=== PATIENT | male | born 1970 | race Caucasian/White ===

== ENCOUNTER 2025-06-23 12:38 | Observation (INO) | payer SELFPAY ==
[2025-06-23] VITALS (11 sets, daily range): BP systolic 188–210; BP diastolic 95–114; PULSE 76–97; RESP 17–20; TEMP 36.4–37; O2SAT 94–100; BMI 28.3
--- NOTE | 2025-06-23 | ECHO_ITS ---
Patient Info Name: Mckinley Guerrero Age: 55 years : 1970 Gender: Male Ht: 71 in Wt: 200 lbs BSA: 2.15 m2 HR: 77 bpm BP: 200 / 109 mmHg Heart Rhythm: Sinus Rhythm Technical Quality: Good Exam Date: 06/23/2025 4:44 PM Patient Status: I Admit Date: 06/23/2025 Exam Type: CA echo doppler w bubble study Complete two-dimensional, color flow and Doppler transthoracic echocardiogram is performed with agitated saline. Staff Referring Physician: New Subramanian Table Saw Operator: Keisha Browning Attending Provider: New Subramanian Contrast/Agitated Saline Contrast/Ag. Saline: Agitated Saline Amount: 20.00 ml Existing IV Access: Yes IV Access Condition: patent with no signs of infiltration Summary 1. Left ventricular chamber dimension is normal. 2. Left ventricular systolic function is normal, estimated at 60-65. 3. There is mild concentric increased left ventricular wall thickness. 4. The left ventricular diastolic function is grade I diastolic dysfunction. 5. E/e' 13 is mildly elevated. 6. No pulmonary hypertension, estimated pulmonary arterial systolic pressure is 20 mmHg. Left Ventricle Left ventricular chamber dimension is normal. Left ventricular systolic function is normal, estimated at 60-65. There is mild concentric increased left ventricular wall thickness. The left ventricular diastolic function is grade I diastolic dysfunction. E/e' 13 is mildly elevated. Right Ventricle Right ventricular chamber dimension is normal. Right ventricular systolic function is normal and with normal TAPSE 2.0 cm. Left Atria Left atrial chamber dimension is normal. Right Atria Right atrial chamber dimension is normal. Atrial Septum Intact interatrial septum visualized by 2D and agitated saline imaging. Agitated saline injection with and without valsalva maneuver opacified right side cardiac chambers without shunt to left side cardiac chambers. Aortic Valve The aortic valve is trileaflet. There is no aortic valve stenosis. There is no aortic valve regurgitation. Pulmonic Valve There is no pulmonic regurgitation. Mitral Valve There is no mitral valve stenosis. There is no mitral valve regurgitation. Tricuspid Valve There is no tricuspid valve regurgitation. No pulmonary hypertension, estimated pulmonary arterial systolic pressure is 20 mmHg. Pericardium/Pleural There is no pericardial effusion. Inferior Vena Cava Normal inferior vena cava with >50% collapse upon inspiration consistent with normal right atrial pressure, 5 mmHg. Aorta The aortic root size at the sinus of Valsalva is normal. Left Ventricular Outflow Tract Name Value Normal LVOT 2D LVOT Diameter 2.0 cm LVOT Doppler LVOT Peak Velocity 83 cm/s LVOT Peak Gradient 3 mmHg LVOT Mean Gradient 1 mmHg LVOT VTI 14 cm LVOT VTI/AV VTI Ratio 0.7 LVOT Stroke Volume 45 ml LVOT CO 3.5 l/min LVOT CI 1.6 l/min/m2 Pulmonic Valve Name Value Normal RVOT Doppler RVOT Peak Velocity 87 cm/s RVOT Peak Gradient 3 mmHg PV Doppler PV Peak Velocity 109 cm/s PV Peak Gradient 5 mmHg Mitral Valve Name Value Normal MV Diastolic Function MV E Peak Velocity 51 cm/s MV A Peak Velocity 68 cm/s MV E/A 0.7 MV Decel Time (PW) 232 ms MV Annular TDI MV E/e' (Septal) 12.2 MV E/e' (Lateral) 13.9 MV E/e' (Average) 13.1 Tricuspid Valve Name Value Normal TV Regurgitation Doppler TR Peak Velocity 193 cm/s TR Peak Gradient 15 mmHg Estimated PAP/RSVP RA Pressure 5 mmHg <=5 PA Systolic Pressure 20 mmHg <36 RV Systolic Pressure 20 mmHg <36 TV Annular TDI TV Lateral Mary s' Velocity 13.2 cm/s >=9.5 Aortic Valve Name Value Normal AV Doppler AV Peak Velocity 118 cm/s AV Peak Gradient 6 mmHg AV Mean Gradient 3 mmHg AV VTI 20 cm AV Area (Cont Eq VTI) 2.2 cm2 >=3.0 AV Area (Cont Eq Juice) 2.3 cm2 AV DI (Juice) 0.71 AV Regurgitation 2D LVOT Area 3.3 cm2 Ventricles Name Value Normal LV Dimensions 2D/MM IVS Diastolic Thickness (2D) 1.4 cm 0.6-1.0 LVID Diastole (2D) 5.0 cm 4.2-5.8 LVIW Diastolic Thickness (2D) 1.1 cm 0.6-1.0 LVID Systole (2D) 3.4 cm 2.5-4.0 LVOT Diameter 2.0 cm LV Mass (2D Cubed) 245.74 g 88.00-224.00 LV Mass Index (2D Cubed) 114 g/m2 49-115 Relative Wall Thickness (2D) 0.45 <=0.42 LV Fractional Shortening/Ejection Fraction 2D/MM LV Fractional Shortening (2D) 32 % 25-43 LV EF (2D Teichholz) 60 % LV Diastolic Volume (4C MOD) 111 ml LV EF (4C MOD) 55 % LV Diastolic Volume (2C MOD) 130 ml LV EF (2C MOD) 51 % LV Diastolic Volume (BP MOD) 124 ml 62-150 LV Diastolic Volume Index (BP MOD) 58 ml/m2 34-74 LV Systolic Volume (BP MOD) 57 ml 21-61 LV Systolic Volume Index (BP MOD) 26 ml/m2 11-31 LV EF (BP MOD) 54 % 52-72 LV Diastolic Length (4C) 9.3 cm LV Systolic Length (4C) 8.1 cm LV Stroke Volume (4C MOD) 61 ml Atria Name Value Normal LA Dimensions LA Volume (4C A-L) 46 ml LA Volume (BP A-L) 61 ml RA Dimensions RA Area (4C) 16.9 cm2 <=18.0 Report Signatures
--- NOTE | ~2025-06-23 | CT_ITS ---
EXAMINATION: CTA brain carotid DATE: 06/23/2025 14:16 CDT INDICATION: Facial droop. CVA. TECHNIQUE: Computed tomographic angiography (CTA) of the head was performed without and with 100 mL Omnipaque-350 intravenous contrast. CTA of the neck was performed with intravenous contrast. The dose-length product was 1163.86 mGy-cm. Maximum intensity projection and volume rendered 3D-reconstructions were created by the technologist on a separate workstation. COMPARISON: CT dated 06/23/2025. FINDINGS: HEAD CTA: The right vertebral artery is diminutive and ends in the right posterior inferior cerebellar artery. The posterior cerebral arteries are supplied via the basilar artery. No significant stenosis, occlusion or aneurysm. NECK CTA: There is atherosclerosis of the aorta without evidence for dissection. The origins of the carotid arteries are widely patent. The right vertebral artery is diminutive throughout its course. There is atherosclerotic changes involving the proximal aspect of the internal carotid arteries. There is less than 20% stenosis at the origin of the right internal carotid artery. There is 44% stenosis of the proximal left internal carotid artery. No evidence for dissection or occlusion. There is mild atherosclerosis of the cavernous segments of the internal carotid arteries. No cervical lymphadenopathy. Mild mucosal thickening of the maxillary, ethmoid and frontal sinuses. IMPRESSION: 1: No significant abnormality of the intracranial arteries. No evidence for aneurysm, thrombus or occlusion. 2: Mild stenosis of the proximal left internal carotid artery measuring 44%. Reviewed, dictated and finalized at location O. IMPRESSION: 1: No significant abnormality of the intracranial arteries. No evidence for ane urysm, thrombus or occlusion. 2: Mild stenosis of the proximal left internal carotid artery measuring 44%.
--- NOTE | ~2025-06-23 | CT_ITS ---
CT HEAD NON-CONTRAST Clinical History: dizziness Comparison: None Technique: Unenhanced axial images skull base to vertex Coronal, sagittal reformats CT images acquired with automatic exposure control for dose reduction DLP: 605 mGy-cm Findings: Sulci, ventricles: Unremarkable. No intracerebral hemorrhage. No evidence acute territorial infarct. No mass effect, midline shift. Bony calvarium intact. Visualized paranasal sinuses: Frontoethmoid disease. Mastoid air cells: Clear. IMPRESSION: 1. No acute intracranial findings. Reviewed, dictated and finalized at location R.
--- NOTE | ~2025-06-23 | XR_ITS ---
Examination: XR chest 1V Clinical History: dizziness, WEAKNESS Comparison: None Technique: Portable AP Findings: Heart size normal. Lungs clear. No acute bony abnormality. IMPRESSION: 1. No acute cardiopulmonary findings given portable technique. Reviewed, dictated and finalized at location R.
--- NOTE | ~2025-06-23 | MR_ITS ---
EXAMINATION: MR brain/brain stem wo/w con DATE: 06/24/2025 09:51 INDICATION: Stroke TECHNIQUE: Magnetic resonance imaging (MRI) of the brain and brainstem was performed without and with 19 mL Multihance intravenous contrast. Sequences included sagittal and axial T1-weighted SE, axial diffusion-weighted FS SE, axial 3D SWAN, axial T2-weighted FLAIR, and axial T2-weighted FSE. Postcontrast axial and coronal T1-weighted SE was obtained. Apparent diffusion coefficient (ADC) maps were created. COMPARISON: None. FINDINGS: There are no areas of restricted diffusion to suggest acute infarction. No intracranial hemorrhage or abnormal intracranial mass lesion. There are scattered areas of nonspecific increased T2-weighted signal intensity in the cerebral white matter, predominantly involving the deep and periventricular whi te matter. There are no intraparenchymal signal abnormalities seen on the other pulse sequences. The ventricles are symmetric and normal in size. There are no abnormal extra-axial fluid collections. Flow voids are seen in the cerebral arteries on the T2-weighted sequences consistent with their expected patency. Mucosal thickening the bilateral frontal and ethmoid sinuses. Visualized orbits and soft tissues are unremarkable. There are no areas of abnormal enhancement on the post contrast images. IMPRESSION: 1. Normal aging brain. No acute intracranial process or abnormally enhancing brain lesions. Reviewed, dictated and finalized at location A. IMPRESSION: 1. Normal aging brain. No acute intracranial process or abnormally enhancing br ain lesions.
--- NOTE | 2025-06-23 12:47 | ECG_ITS ---
Test Date: 2025-06-23 12:52:12 Measurements Intervals [place] Rate: 88 P: 47 FL: 165 QRS: -6 QRSD: 89 T: 60 QT: 375 QTc: 456 Interpretive Statements SINUS RHYTHM NONSPECIFIC ST ABNORMALITY BORDERLINE ECG No previous ECG available for comparison Electronically Signed On 06-24-2025 15:47:50 CDT by Mario Crews M.D.
[2025-06-23 13:00] LABS: Hematocrit 55.7 % (42.0-52.0); Hemoglobin 18.9 g/dL (14.0-18.0); Immature Granulocyte Percent A 0.2 % (0-0.5); Lymphocytes Absolute Auto 3.12 K/mm3 (0.9-3.2); Mean Corpuscular HGB Conc 33.9 g/dl (32-36); Mean Corpuscular Hemoglobin 32.1 pg (26-34); Mean Corpuscular Volume 94.7 fl (80-100); Nucleated Red Blood Cells Absolute Auto 0.000 K/mm3 (0.0-0.012); Nucleated Red Blood Cells Perc 0.0 % (0.0-0.2); Platelet Count Result 357 k/mm3 (150-375); Red Blood Count 5.88 M/mm3 (4.6-6.20); White Blood Count 9.1 K/mm3 (4.5-10.0)
[2025-06-23 13:16] LABS: Alanine Aminotransferase 23 U/L (6-50); Albumin Level 3.5 g/dL (3.5-5.1); Alkaline Phosphatase 126 U/L (38-126); Anion Gap 6 mmol/L (4-12); Aspartate Amino Transferase 30 U/L (17-59); Bilirubin,Total 1.3 mg/dL (0.2-1.3); Blood Urea Nitrogen 11 mg/dL (9-20); Calcium 8.9 mg/dL (8.4-10.2); Carbon Dioxide 22 mmol/L (22-30); Chloride 105 mmol/L (98-107); Estimated CRCL calculation 99 ml/min; Estimated Glomerular Filt Rate > 60; Glucose 120 mg/dL (65-110); Potassium 4.0 mmol/L (3.4-5.0); Sodium 133 mmol/L (137-145); Total Protein 7.5 g/dL (6.3-8.2)
[2025-06-23 13:22] LABS: Troponin I 0.020 ng/mL (0.000-0.034)
--- NOTE | 2025-06-23 13:43 | ED_ITS ---
HPI - Dizziness General Chief Complaint: Dizziness Stated Complaint: Im feeling funny' Time Seen by Provider: 06/23/25 13:36 History of Present Illness HPI Narrative: This is a 55-year-old male with no significant past medical history presents to ED for ?feeling unwell?. Patient states that yesterday at about 10:00 a.m., he began to feel off balance. Family at bedside states that they noticed that the patient was having some mild left facial droop which was new for him. His symptoms persisted today prompting him to come to the ED. is also full week to his left side. No prior history of strokes. He is not on any medications currently. Related Data Allergies Allergy/AdvReac Type Severity Reaction Status Date / Time No Known Allergies Allergy Verified 06/23/25 14:12 Course Vital Signs Vital signs: Vital Signs Temperature 98 F 06/23/25 12:43 Pulse Rate 97 06/23/25 12:43 Respiratory Rate 18 06/23/25 12:43 Blood Pressure 201/104 H 06/23/25 12:43 Pulse Oximetry 100 06/23/25 12:43 Oxygen Delivery Room Air 06/23/25 12:43 Temperature 97.7 F 06/23/25 15:02 Pulse Rate 77 06/23/25 15:02 Respiratory Rate 17 06/23/25 15:02 Blood Pressure 200/109 H 06/23/25 15:02 Pulse Oximetry 95 06/23/25 15:02 Oxygen Delivery Room Air 06/23/25 12:43 MDM - Dizziness MDM Narrative Medical decision making narrative: 55-year-old male who presented to the ED for left-sided weakness and left-sided facial droop. Initial evaluation, patient was in no acute distress, afebrile, hypertensive to 200/100. NIHSS for due to left facial droop and left upper and lower extremity drift. Patient is approximately 28 hours after onset of symptoms was outside of the window for any intervention at this time. CT head showed no acute process. CBC and CMP were without significant abnormalities. EKG showed no concerning findings. CTA head/neck showed mild stenosis of the proximal left carotid artery but no other findings. Discussed the case with on- call Neurology will see the patient in the consult, recommended aspirin and Plavix. Discussed case with hospitalist who will admit the patient. Patient agreeable to this plan. Differential Diagnosis Differential diagnosis: Likely vertebral basilar insufficiency, cerebrovascular accident and transient cerebral ischemia Medical Records Attestation: I reviewed the patient's medical records. Lab Data Attestation: I reviewed the patient's lab results. 06/23/25 12:52 06/23/25 12:52 Labs: Lab Results 06/23/25 06/23/25 Range/Units 12:52 13:29 WBC 9.1 (4.5-10.0) K/mm3 RBC 5.88 (4.6-6.20) M/mm3 Hgb 18.9 H (14.0-18.0) g/dL Hct 55.7 H (42.0-52.0) % MCV 94.7 (80-100) fl MCH 32.1 (26-34) pg MCHC 33.9 (32-36) g/dl RDW 14.3 (11.5-14.5) % Plt Count 357 (150-375) k/mm3 MPV 8.4 (7.4-10.4) fl Immature Gran % (Auto) 0.2 (0-0.5) % Neut % (Auto) 51.9 (45.5-73.1) % Lymph % (Auto) 34.3 (18.3-44.2) % [place] % (Auto) 8.5 (2.6-8.5) % Eos % (Auto) 3.9 (0-4.4) % Baso % (Auto) 1.2 (0.2-1.2) % Lymph # (Auto) 3.12 (0.9-3.2) K/mm3 [place] # (Auto) 0.8 H (0.1-0.6) K/mm3 Eos # (Auto) 0.4 H (0-0.3) K/mm3 Baso # (Auto) 0.1 (0.0-0.1) K/mm3 Abs Immat Gran (auto) 0.02 (0.00-0.031) K/mm3 Absolute Neuts (auto) 4.7 (1.3-6.7) K/mm3 Absolute Nucleated RBC 0.000 (0.0-0.012) K/mm3 Nucleated RBC % 0.0 (0.0-0.2) % PT 12.0 (11.1-14.7) Seconds INR 0.9 APTT 26.1 (22.3-36.8) Seconds Sodium 133 L (137-145) mmol/L Potassium 4.0 (3.4-5.0) mmol/L Chloride 105 (98-107) mmol/L Carbon Dioxide 22 (22-30) mmol/L Anion Gap 6 (4-12) mmol/L BUN 11 (9-20) mg/dL Creatinine 0.77 (0.7-1.3) mg/dL Estim Creat Clear Calc 99 ml/min Estimated GFR > 60 (59 - ) Glucose 120 H (65-110) mg/dL POC Capillary Glucose 129 H (65-105) mg/dl Calcium 8.9 (8.4-10.2) mg/dL Total Bilirubin 1.3 (0.2-1.3) mg/dL AST 30 (17-59) U/L ALT 23 (6-50) U/L Alkaline Phosphatase 126 (38-126) U/L Troponin I 0.020 (0.000-0.034) ng/mL Total Protein 7.5 (6.3-8.2) g/dL Albumin 3.5 (3.5-5.1) g/dL Imaging Data Radiologist's impression: Impressions Chest X-Ray 06/23/25 13:08 IMPRESSION: 1. No acute cardiopulmonary findings given portable technique. Head CT 06/23/25 13:08 IMPRESSION: 1. No acute intracranial findings. Head/Neck CTA 06/23/25 14:16 IMPRESSION: 1: No significant abnormality of the intracranial arteries. No evidence for aneurysm, thrombus or occlusion. 2: Mild stenosis of the proximal left internal carotid artery measuring 44%. ECG Data EKG #1: ECG completion date: 06/23/25 ECG completion time: 12:52 Interpretation: Normal sinus rhythm rate of 88, left atrial enlargement, right ventricular conduction delay, no acute ST or T-wave changes Discharge Plan Discharge Clinical Impression: Acute CVA (cerebrovascular accident) Hypertension Qualifiers: Hypertension type: unspecified Qualified Code(s): I10 - Essential (primary) hypertension Patient Disposition: Still a Patient Condition: Stable Patient Language: Palestinian Follow-up/Referrals: Mir Whitmore MD [Physician, Urology]
[2025-06-23 13:52] LABS: INR 0.9; Prothrombin Time 12.0 Seconds (11.1-14.7)
[2025-06-23 13:53] LABS: Partial Thromboplastin Time 26.1 Seconds (22.3-36.8)
[2025-06-23] MEDS: ASPIRIN 81 MG CHEWABLE TABLET 324 MG PO (14:13)
[2025-06-23] MEDS: CLOPIDOGREL BISULFATE 300 MG TABLET PO (14:17)
--- NOTE | 2025-06-23 15:46 | P.HP_ITS ---
H&P: HPI History of Present Illness Date/Time: 06/23/25 15:46 Chief Complaint: Off balance Narrative: This is a 55-year-old male who presents to the ED for feeling unwell and being off balance with left-sided paresthesia and weakness since yesterday at 10:00 a.m.. Family noticed that patient was having some mild left-sided facial droop which was new for him. Symptoms persisted today which prompted him to be brought to the ED. no history of prior stroke. Patient not on any medications prior to admission. Has not seen physician for many years patient is also current smoker and uses alcohol. In the ED his vitals shows hypertension with blood pressure 201/104. Laboratory workup revealed WBC of 9.1 hemoglobin 18.9 platelet count 3.7. Chem panel shows sodium of 133 potassium 4.0 chloride 105 bicarbonate 22 BUN 11 creatinine 0.7 blood glucose of 120. LFTs were normal. Troponin was 0.020. EKG showed sinus rhythm. CT head was performed which showed no acute intracranial findings CTA head and neck was performed which showed no significant abnormality of the intracranial arteries no evidence for aneurysm thrombus or occlusion. Mild stenosis of the proximal left internal carotid artery measuring 44%. Patient received aspirin 325 mg no also was loaded with Plavix 300 mg. Patient admitted for stroke workup Review of Systems Review of Systems: - CONSTITUTIONAL: Denies weight loss, fe niels and chills. Feels unwell generally - HEENT: Denies changes in vision and he aring - RESPIRATORY: Denies SOB and cough. - CV: Denies palpitations and CP. - GI: Denies abdominal pain, nausea, vom iting and diarrhea. - : Denies dysuria and urinary frequen cy. - MSK: Denies myalgia and joint pain. - SKIN: Denies rash and pruritus. - NEUROLOGICAL: Denies headache and sync ope. Left-sided weakness as well as paresthesia reported - PSYCHIATRIC: Denies recent changes in mood. Denies anxiety and depression. Meds Home Medications and Allergies Allergies Allergy/AdvReac Type Severity Reaction Status Date / Time No Known Allergies Allergy Verified 06/23/25 14:12 Vital Signs Vital Signs - 24 hr 06/23/25 12:43 06/23/25 13:48 06/23/25 14:17 Temperature 98 F 97.9 F Pulse Rate 97 81 89 Respiratory Rate 18 17 17 Blood Pressure 201/104 H 195/95 H 191/101 H Pulse Oximetry 100 94 95 Oxygen Delivery Room Air 06/23/25 14:32 06/23/25 15:02 Temperature 97.9 F 97.7 F Pulse Rate 79 77 Respiratory Rate 20 17 Blood Pressure 201/103 H 200/109 H Pulse Oximetry 96 95 Oxygen Delivery Exam Narrative: GENERAL: The patient is well developed, not in acute distress HEENT: Nonicteric sclerae, PERRLA, EOMI. Oropharynx clear. Moist mucous membranes. Conjunctivae appear well perfused. CHEST: Chest wall is nontender. HEART: Regular rate and rhythm without murmur, rubs, or gallops LUNGS: Clear to auscultation bilaterally. no respiratory distress ABDOMEN: Soft, positive bowel sounds, non-tender, no organomegaly. SKIN: No rash, no excessive bruising, petechiae, or purpura. NEUROLOGIC: Cranial nerves II-XII intact, alert and oriented x 3, mild left- sided weakness decreased sensation on left side left-sided facial drooping, Babinski positive on left foot EXTREMITIES: no edema, cyanosis or clubbing H&P: Results Labs Labs: Short CBC 06/23/25 Range/Units 12:52 WBC 9.1 (4.5-10.0) K/mm3 Hgb 18.9 H (14.0-18.0) g/dL Hct 55.7 H (42.0-52.0) % Plt Count 357 (150-375) k/mm3 BMP 06/23/25 12:52 Sodium 133 L Potassium 4.0 Chloride 105 Carbon Dioxide 22 BUN 11 Creatinine 0.77 Glucose 120 H Calcium 8.9 Cardiac Enzymes 06/23/25 Range/Units 12:52 Troponin I 0.020 (0.000-0.034) ng/mL Liver Function 06/23/25 Range/Units 12:52 Total Bilirubin 1.3 (0.2-1.3) mg/dL AST 30 (17-59) U/L ALT 23 (6-50) U/L Alkaline Phosphatase 126 (38-126) U/L Albumin 3.5 (3.5-5.1) g/dL Assessment and Plan Assessment and plan (1) Hypertension: Qualifiers: Hypertension type: unspecified Qualified Code(s): I10 - Essential (primary) hypertension Code(s): I10 - Essential (primary) hypertension Status: Acute (2) Acute CVA (cerebrovascular accident): Code(s): I63.9 - Cerebral infarction, unspecified Status: Acute Plan This is a 55-year-old male who presents to the ED for feeling unwell and being off balance since yesterday at 10:00 a.m.. Family noticed that patient was having some mild left-sided facial droop which was new for him. Symptoms persisted today which prompted him to be brought to the ED. no history of prior stroke. Patient not on any medications prior to admission. In the ED his vitals shows hypertension with blood pressure 201/104. Laboratory workup revealed WBC of 9.1 hemoglobin 18.9 platelet count 3.7. Chem panel shows sodium of 133 potassium 4.0 chloride 105 bicarbonate 22 BUN 11 creatinine 0.7 blood glucose of 120. LFTs were normal. Troponin was 0.020. EKG showed sinus rhythm. CT head was performed which showed no acute intracranial findings CTA head and neck was performed which showed no significant abnormality of the intracranial arteries no evidence for aneurysm thrombus or occlusion. Mild stenosis of the proximal left internal carotid artery measuring 44%. Patient received aspirin 325 mg no also was loaded with Plavix 300 mg. Patient admitted for stroke workup Suspected acute stroke out of the window as symptoms started since yesterday morning at 10. CT head however is negative. Received aspirin and Plavix. CTA negative for significant carotid stenosis. Will further evaluate with MRI brain and echocardiogram EKG with normal sinus rhythm continue to monitor on telemetry. Continue aspirin Plavix and add statin. Neurology has been consulted. Check lipid profile and A1c Hypertension allow permissive hypertension for now will need chronic hypertension control eventually Tobacco abuse will give nicotine patch counseling done Alcohol use counseling done Skin rash in lower extremities psoriasis versus eczema follow-up with Dermatology as outpatient basis DVT prophylaxis Lovenox Code status full code Hospitalist [facility] Advance Care Plan I have confirmed that the patient's Advanced Care Plan is present, code status is documented, or surrogate decision maker is listed in patient medical record.: Yes Medication Reconciliation I have utilized all available resources to obtain, update and review the patients current medications (includes all prescriptions, OTC, herbals, cannabis, and nutritional supplements).: Yes
[2025-06-23 16:51] LABS: Cholesterol 323 mg/dL (0-200); HDL Direct 35 mg/dL; Triglycerides 212 mg/dL (<150)
--- NOTE | 2025-06-23 17:29 | ADMGEN ---
This patient, Mckinley Guerrero, was admitted to Medical Room 345-. Patient/family oriented to hospital policies and general routines including ID bracelet, bed and alarms, visiting hours, pain management, procedures, bathroom and other care routines, personal items, smoking policy, room service/diet, and visiting hours. Information on how to activate the Rapid Response Team has been discussed. Patient/Family are encouraged to report perceived risks to care and to ask questions if they do not understand what they are told or what they should do.
[2025-06-23 17:39] LABS: Hemoglobin A1C 5.7 % (<5.7)
[2025-06-23] MEDS: NICOTINE (*PBKC) 21 MG PATCH 1 PATCH TRANSDERM (18:30)
[2025-06-23] MEDS: ATORVASTATIN 40 MG TABLET 80 MG PO (20:44)
[2025-06-24] VITALS (11 sets, daily range): BP systolic 180–192; BP diastolic 83–109; PULSE 50–87; RESP 16–20; TEMP 36.5–37.3; O2SAT 94–98
[2025-06-24 05:49] LABS: Hematocrit 54.0 % (42.0-52.0); Hemoglobin 17.7 g/dL (14.0-18.0); Immature Granulocyte Percent A 0.4 % (0-0.5); Lymphocytes Absolute Auto 3.62 K/mm3 (0.9-3.2); Mean Corpuscular HGB Conc 32.8 g/dl (32-36); Mean Corpuscular Hemoglobin 31.7 pg (26-34); Mean Corpuscular Volume 96.6 fl (80-100); Nucleated Red Blood Cells Absolute Auto 0.000 K/mm3 (0.0-0.012); Nucleated Red Blood Cells Perc 0.0 % (0.0-0.2); Platelet Count Result 333 k/mm3 (150-375); Red Blood Count 5.59 M/mm3 (4.6-6.20); White Blood Count 9.9 K/mm3 (4.5-10.0)
[2025-06-24 06:16] LABS: Alanine Aminotransferase 20 U/L (6-50); Albumin Level 3.0 g/dL (3.5-5.1); Alkaline Phosphatase 106 U/L (38-126); Anion Gap 5 mmol/L (4-12); Aspartate Amino Transferase 26 U/L (17-59); Bilirubin,Total 1.4 mg/dL (0.2-1.3); Blood Urea Nitrogen 10 mg/dL (9-20); Calcium 8.7 mg/dL (8.4-10.2); Carbon Dioxide 23 mmol/L (22-30); Chloride 104 mmol/L (98-107); Estimated CRCL calculation 104 ml/min; Estimated Glomerular Filt Rate > 60; Glucose 94 mg/dL (65-110); Magnesium 2.0 mg/dL (1.6-2.3); Potassium 3.5 mmol/L (3.4-5.0); Sodium 132 mmol/L (137-145); Total Protein 6.4 g/dL (6.3-8.2)
[2025-06-24] MEDS: ASPIRIN 81 MG ENTERIC TABLET PO (09:13)
[2025-06-24] MEDS: CLOPIDOGREL BISULFATE 75 MG TABLET PO (09:13)
[2025-06-24] MEDS: NICOTINE (*PBKC) 21 MG PATCH 1 PATCH TRANSDERM (09:13)
[2025-06-24] MEDS: ENOXAPARIN 40 MG/0.4 ML SYRINGE SUB-Q (09:14)
--- NOTE | 2025-06-24 11:43 | P.CONNEU_ITS ---
Assessment and Plan Assessment and plan (1) Acute CVA (cerebrovascular accident): Code(s): I63.9 - Cerebral infarction, unspecified Status: Acute Plan Right hemispheric stroke with negative MRI could be involving the brainstem will need the repeat the study in the meantime medication can be continued as such and obtain the echocardiogram as well. Consult date: 06/24/25 HPI: Mckinley Guerrero is a 55 year old male Admitted to the hospital for the complaints of I am feeling funny since 10:00 a.m. day before along with the difficulties in maintaining the balance and left facial droop. He is not allergic to any medication. On initial evaluation in the emergency room he was hypertensive with blood pressure of 201/104 repeat 200/109, normal CBC, normal BMP, normal masters scan, negative x-ray of the chest, negative CT scan of the head, negative CTA of the head and neck except mild stenosis of the proximal left internal carotid artery measuring 44%, normal EKG with no atrial fibrillation, he was not taking any home medications, but at present he is taking aspirin 81mg daily, and clopidogrel 75mg daily, in addition to atorvastatin 80mg at night. Review of Systems 2 Review of Systems: All systems reviewed & are unremarkable except as noted in HPI and below PMFSH Social History Social History Smoking packs per day: 1 Smoking cigarettes per day: 20.0 Years smoked: 40 Smoking pack-years: 40.00 Smoking status: Current every day smoker Tobacco type: cigarettes Alcohol intake: never Substance use: never Lack of Transportation: No Lack of Food: Never True Current Housing: I Do Not Have Housing Concerned About Future Housing: No Difficulty Paying Gas/Electric Bills: No Difficulty Paying for Meds: No Currently Unemployed: No Education: High School Diploma/GED Difficulty w/ Childcare or Family Care: No Spiritual care concerns: No Meds Home Medications and Allergies Home Medications ?Medication ?Instructions ?Recorded ?Confirmed ?Type No Home Medications 06/23/25 06/23/25 H istory Allergies Allergy/AdvReac Type Severity Reaction Status Date / Time No Known Allergies Allergy Verified 06/23/25 14:12 Vital Signs Vital Signs - 24 hr 06/23/25 12:43 06/23/25 13:48 06/23/25 14:17 Temperature 36.6 C 36.6 C Pulse Rate 97 81 89 Respiratory Rate 18 17 17 Blood Pressure 201/104 H 195/95 H 191/101 H Pulse Oximetry 100 94 95 Oxygen Delivery Room Air 06/23/25 14:32 06/23/25 15:02 06/23/25 16:19 Temperature 36.6 C 36.5 C 36.6 C Pulse Rate 79 77 83 Respiratory Rate 20 17 20 Blood Pressure 201/103 H 200/109 H 210/110 H Pulse Oximetry 96 95 95 Oxygen Delivery 06/23/25 16:32 06/23/25 17:30 06/23/25 17:55 Temperature 36.4 C L Pulse Rate 79 77 Respiratory Rate 17 20 Blood Pressure 200/111 H 188/101 H Pulse Oximetry 97 97 Oxygen Delivery Room Air 06/23/25 19:52 06/23/25 20:00 06/23/25 20:45 Temperature 37.0 C Pulse Rate 77 76 76 Respiratory Rate 20 18 Blood Pressure 207/114 H Pulse Oximetry 97 99 Oxygen Delivery Room Air 06/24/25 00:00 06/24/25 04:00 06/24/25 05:04 Temperature 36.5 C Pulse Rate 63 50 L 78 Respiratory Rate 18 Blood Pressure 192/100 H Pulse Oximetry 97 Oxygen Delivery 06/24/25 09:15 Temperature Pulse Rate Respiratory Rate Blood Pressure Pulse Oximetry Oxygen Delivery Room Air Exam 2 Narrative: Examination today revealed him to be awake alert oriented x3 with slow speech but without any evidence of dysphagia, head normocephalic with no cranial bruits, ear nose throat examination normal, neck supple with no cervical bruit no thyromegaly no lymphadenopathy, lungs clear to auscultation with no rhonchi or crepitations, pupils round regular reacting to light equally, feels the vision full to finger confrontation in all 4 quadrants, extraocular movements full with no nystagmus, facial sensation intact, face mildly asymmetrical with flattening of the left nasolabial fold, tongue in the oral cavity with no fasciculation, motor examination revealed him to have mild left hemiparesis with hyperreflexia and upgoing left plantar response. Results Labs 06/24/25 05:30 06/24/25 05:30 Labs: Short CBC 06/23/25 06/24/25 Range/Units 12:52 05:30 WBC 9.1 9.9 (4.5-10.0) K/mm3 Hgb 18.9 H 17.7 (14.0-18.0) g/dL Hct 55.7 H 54.0 H (42.0-52.0) % Plt Count 357 333 (150-375) k/mm3 BMP 06/23/25 06/24/25 12:52 05:30 Sodium 133 L 132 L Potassium 4.0 3.5 Chloride 105 104 Carbon Dioxide 22 23 BUN 11 10 Creatinine 0.77 0.73 Glucose 120 H 94 Calcium 8.9 8.7 Cardiac Enzymes 06/23/25 Range/Units 12:52 Troponin I 0.020 (0.000-0.034) ng/mL Liver Function 06/23/25 06/24/25 Range/Units 12:52 05:30 Total Bilirubin 1.3 1.4 H (0.2-1.3) mg/dL AST 30 26 (17-59) U/L ALT 23 20 (6-50) U/L Alkaline Phosphatase 126 106 (38-126) U/L Albumin 3.5 3.0 L (3.5-5.1) g/dL
--- NOTE | 2025-06-24 18:02 | P.PNIM_ITS ---
Progress Note: A&P Assessment and Plan (1) Hypertension: Qualifiers: Hypertension type: unspecified Qualified Code(s): I10 - Essential (primary) hypertension Code(s): I10 - Essential (primary) hypertension Status: Acute (2) Acute CVA (cerebrovascular accident): Code(s): I63.9 - Cerebral infarction, unspecified Status: Acute Plan This is a 55-year-old male who presents to the ED for feeling unwell and being off balance since yesterday at 10:00 a.m.. Family noticed that patient was having some mild left-sided facial droop which was new for him. Symptoms persisted today which prompted him to be brought to the ED. no history of prior stroke. Patient not on any medications prior to admission. In the ED his vitals shows hypertension with blood pressure 201/104. Laboratory workup revealed WBC of 9.1 hemoglobin 18.9 platelet count 3.7. Chem panel shows sodium of 133 potassium 4.0 chloride 105 bicarbonate 22 BUN 11 creatinine 0.7 blood glucose of 120. LFTs were normal. Troponin was 0.020. EKG showed sinus rhythm. CT head was performed which showed no acute intracranial findings CTA head and neck was performed which showed no significant abnormality of the intracranial arteries no evidence for aneurysm thrombus or occlusion. Mild stenosis of the proximal left internal carotid artery measuring 44%. Patient received aspirin 325 mg no also was loaded with Plavix 300 mg. Patient admitted for stroke workup Suspected acute stroke out of the window as symptoms started since yesterday morning at 10. CT head however is negative. Received aspirin and Plavix. CTA negative for significant carotid stenosis. Will further evaluate with MRI brain and echocardiogram EKG with normal sinus rhythm continue to monitor on telemetry. Continue aspirin Plavix and add statin. Neurology has been consulted. Check lipid profile and A1c Hypertension allow permissive hypertension for now will need chronic hypertension control eventually Tobacco abuse will give nicotine patch counseling done Alcohol use counseling done Skin rash in lower extremities psoriasis versus eczema follow-up with Dermatology as outpatient basis DVT prophylaxis Lovenox Code status full code patient still complaints of numbness and tingling in his upper extremities, patient is seen by neurologist and suspect right hemispheric stroke with negative MRI could be involving the brainstem will need the repeat the study in the meantime medication can be continued as such and obtain the echocardiogram as well. upon arrival patient BP was elevated patient his not on any BP medication, will start amolodipine 5mg PO qd and monitor, will have PT/OT evaluate the patient, will benefit going to acute rehab. Subjective Date/time seen: 06/24/25 18:02 Interval history: Off balance Narrative: This is a 55-year-old male who presents to the ED for feeling unwell and being off balance with left-sided paresthesia and weakness since yesterday at 10:00 a.m.. Family noticed that patient was having some mild left-sided facial droop which was new for him. Symptoms persisted today which prompted him to be brought to the ED. no history of prior stroke. Patient not on any medications prior to admission. Has not seen physician for many years patient is also current smoker and uses alcohol. In the ED his vitals shows hypertension with blood pressure 201/104. Laboratory workup revealed WBC of 9.1 hemoglobin 18.9 platelet count 3.7. Chem panel shows sodium of 133 potassium 4.0 chloride 105 bicarbonate 22 BUN 11 c reatinine 0.7 blood glucose of 120. LFTs were normal. Troponin was 0.020. EKG showed sinus rhythm. CT head was performed which showed no acute intracranial findings CTA head and neck was performed which showed no significant abnormality of the intracranial arteries no evidence for aneurysm thrombus or occlusion. Mild stenosis of the proximal left internal carotid artery measuring 44%. Patient received aspirin 325 mg no also was loaded with Plavix 300 mg. Patient admitted for stroke workup patient still complaints of numbness and tingling in his upper extremities, patient is seen by neurologist and suspect right hemispheric stroke with negative MRI could be involving the brainstem will need the repeat the study in the meantime medication can be continued as such and obtain the echocardiogram as well. upon arrival patient BP was elevated patient his not on any BP medication, will start amolodipine 5mg PO qd and monitor, will have PT/OT evaluate the patient, will benefit going to acute rehab. Review of Systems Review of Systems: - CONSTITUTIONAL: Denies weight loss, fe niels and chills. Feels unwell generally - HEENT: Denies changes in vision and he aring - RESPIRATORY: Denies SOB and cough. - CV: Denies palpitations and CP. - GI: Denies abdominal pain, nausea, vom iting and diarrhea. - : Denies dysuria and urinary frequen cy. - MSK: Denies myalgia and joint pain. - SKIN: Denies rash and pruritus. - NEUROLOGICAL: Denies headache and sync ope. Left-sided weakness as well as paresthesia reported - PSYCHIATRIC: Denies recent changes in mood. Denies anxiety and depression. Exam Narrative: Patient is comfortable, NAD HEENT: eyes are clear and none icteric LUNGS:CTA HEART: RR S1S2 ABD: BS+, Soft and nontender Lower extremities: no edema SKIN: nonjaundiced Neuro: grossly intact. Objective Data Vital Signs Vital Signs: Vital Signs - 24 hr 06/23/25 19:52 06/23/25 20:00 06/23/25 20:45 Temperature 37.0 C Pulse Rate 77 76 76 Respiratory Rate 20 18 Blood Pressure 207/114 H Pulse Oximetry 97 99 Oxygen Delivery Room Air 06/24/25 00:00 06/24/25 04:00 06/24/25 05:04 Temperature 36.5 C Pulse Rate 63 50 L 78 Respiratory Rate 18 Blood Pressure 192/100 H Pulse Oximetry 97 Oxygen Delivery 06/24/25 08:05 06/24/25 09:15 06/24/25 12:06 Temperature Pulse Rate 65 71 Respiratory Rate Blood Pressure Pulse Oximetry Oxygen Delivery Room Air 06/24/25 14:00 06/24/25 16:05 Temperature 37.3 C Pulse Rate 70 73 Respiratory Rate 20 Blood Pressure 187/109 H Pulse Oximetry 94 Oxygen Delivery Intake/Output Intake/Output: Intake & Output 06/21/25 06/22/25 06/23/25 06/24/25 23:59 23:59 23:59 23:59 Intake Total 240 1430 Balance 240 1430 Meds/Results Medications: Active Medications Generic Name Dose Route Start Last Admin Trade Name Freq PRN Reason Stop Dose Admin Acetaminophen 650 mg 06/23/25 17:26 Acetaminophen 325 Mg Tablet PO Q4H PRN Mild Pain (1-3) or Fever Amlodipine Besylate 5 mg 06/24/25 15:55 06/24/25 16:19 Amlodipine Besylate 5 Mg Tablet PO 5 mg DAILY CONSTANTIN Administration Aspirin 81 mg 06/24/25 09:00 06/24/25 09:13 Aspirin 81 Mg Enteric Tablet PO 81 mg QAM CONSTANTIN Administration Atorvastatin Calcium 80 mg 06/23/25 21:00 06/23/25 20:44 Atorvastatin 40 Mg Tablet PO 80 mg HS CONSTANTIN Administration Clopidogrel Bisulfate 75 mg 06/24/25 09:00 06/24/25 09:13 Clopidogrel Bisulfate 75 Mg Tablet PO 75 mg QAM CONSTANTIN Administration Enoxaparin Sodium 40 mg 06/24/25 09:00 06/24/25 09:14 Enoxaparin 40 Mg/0.4 Ml Syringe SUB-Q 40 mg DAILY CONSTANTIN Administration Nicotine 1 patch 06/23/25 17:35 06/24/25 09:13 Nicotine (*Pbkc) 21 Mg Patch TRANSDERM 1 patch DAILY CONSTANTIN Administration Ondansetron HCl 4 mg 06/23/25 17:26 Ondansetron Inj 4 Mg/2 Ml Vial IV PUSH Q6H PRN Nausea And Vomiting Perflutren Lipid Microsphere 0 ml 06/23/25 15:51 Perflutren Lipid Microspheres 1.5 Ml Vial Diluted To 10 Ml Total Volume IV PUSH 06/26/25 15:51 ONCE PRN adequate visualization Protocol Radiology Results: ITS Impressions Chest X-Ray 06/23/25 13:08 IMPRESSION: 1. No acute cardiopulmonary findings given portable technique. Head CT 06/23/25 13:08 IMPRESSION: 1. No acute intracranial findings. Head/Neck CTA 06/23/25 14:16 IMPRESSION: 1: No significant abnormality of the intracranial arteries. No evidence for aneurysm, thrombus or occlusion. 2: Mild stenosis of the proximal left internal carotid artery measuring 44%. Brain MRI 06/24/25 09:52 IMPRESSION: 1. Normal aging brain. No acute intracranial process or abnormally enhancing brain lesions. Labs Labs: Laboratory Results - last 24 hr 06/24/25 05:30 WBC 9.9 RBC 5.59 Hgb 17.7 Hct 54.0 H MCV 96.6 MCH 31.7 MCHC 32.8 RDW 14.4 Plt Count 333 MPV 8.4 Immature Gran % (Auto) 0.4 Neut % (Auto) 49.2 Lymph % (Auto) 36.5 [place] % (Auto) 9.0 H Eos % (Auto) 3.8 Baso % (Auto) 1.1 Lymph # (Auto) 3.62 H [place] # (Auto) 0.9 H Eos # (Auto) 0.4 H Baso # (Auto) 0.1 Abs Immat Gran (auto) 0.04 H Absolute Neuts (auto) 4.9 Absolute Nucleated RBC 0.000 Nucleated RBC % 0.0 Sodium 132 L Potassium 3.5 Chloride 104 Carbon Dioxide 23 Anion Gap 5 BUN 10 Creatinine 0.73 Estim Creat Clear Calc 104 Estimated GFR > 60 Glucose 94 Calcium 8.7 Magnesium 2.0 Total Bilirubin 1.4 H AST 26 ALT 20 Alkaline Phosphatase 106 Total Protein 6.4 Albumin 3.0 L
[2025-06-24] MEDS: ATORVASTATIN 40 MG TABLET 80 MG PO (20:09)
[2025-06-25] VITALS (7 sets, daily range): BP systolic 148–195; BP diastolic 96–100; PULSE 47–88; RESP 16–18; TEMP 36.6–36.8; O2SAT 96–98
--- NOTE | 2025-06-25 01:17 | PC.NURSE ---
Rate Marker contacted [facility] at 2044 regarding patients BP. No nee orders at this time
[2025-06-25 06:05] LABS: Hematocrit 53.9 % (42.0-52.0); Hemoglobin 17.9 g/dL (14.0-18.0); Mean Corpuscular HGB Conc 33.2 g/dl (32-36); Mean Corpuscular Hemoglobin 31.9 pg (26-34); Mean Corpuscular Volume 95.9 fl (80-100); Platelet Count Result 315 k/mm3 (150-375); Red Blood Count 5.62 M/mm3 (4.6-6.20); White Blood Count 9.7 K/mm3 (4.5-10.0)
[2025-06-25 06:29] LABS: Anion Gap 4 mmol/L (4-12); Blood Urea Nitrogen 12 mg/dL (9-20); Calcium 8.6 mg/dL (8.4-10.2); Carbon Dioxide 25 mmol/L (22-30); Chloride 105 mmol/L (98-107); Estimated CRCL calculation 97 ml/min; Estimated Glomerular Filt Rate > 60; Glucose 98 mg/dL (65-110); Magnesium 2.0 mg/dL (1.6-2.3); Potassium 3.5 mmol/L (3.4-5.0); Sodium 134 mmol/L (137-145)
[2025-06-25] MEDS: VITAMIN B COMPLEX CAPSULE 1 CAP PO (08:51)
[2025-06-25] MEDS: CLOPIDOGREL BISULFATE 75 MG TABLET PO (08:52)
[2025-06-25] MEDS: ENOXAPARIN 40 MG/0.4 ML SYRINGE SUB-Q (08:52)
[2025-06-25] MEDS: POTASSIUM CHLORIDE 20 MEQ ER TABLET 40 MEQ PO (08:52)
[2025-06-25] MEDS: NICOTINE (*PBKC) 21 MG PATCH 1 PATCH TRANSDERM (08:52)
[2025-06-25] MEDS: ASPIRIN 81 MG ENTERIC TABLET PO (08:52)
[2025-06-25 10:33] LABS: Vitamin B12 294.0 pg/mL (239-931)
--- NOTE | 2025-06-25 16:27 | PM.DS ---
DS: Admitting Diagnosis Discharge Date 06/25/25 Admitting Diagnosis Off balance DS: Discharge Diagnosis Discharge Diagnosis (1) Hypertension: Qualifiers: Hypertension type: unspecified Qualified Code(s): I10 - Essential (primary) hypertension Code(s): I10 - Essential (primary) hypertension Status: Acute (2) Acute CVA (cerebrovascular accident): Code(s): I63.9 - Cerebral infarction, unspecified Status: Acute Plan This is a 55-year-old male who presents to the ED for feeling unwell and being off balance since yesterday at 10:00 a.m.. Family noticed that patient was having some mild left-sided facial droop which was new for him. Symptoms persisted today which prompted him to be brought to the ED. no history of prior stroke. Patient not on any medications prior to admission. In the ED his vitals shows hypertension with blood pressure 201/104. Laboratory workup revealed WBC of 9.1 hemoglobin 18.9 platelet count 3.7. Chem panel shows sodium of 133 potassium 4.0 chloride 105 bicarbonate 22 BUN 11 creatinine 0.7 blood glucose of 120. LFTs were normal. Troponin was 0.020. EKG showed sinus rhythm. CT head was performed which showed no acute intracranial findings CTA head and neck was performed which showed no significant abnormality of the intracranial arteries no evidence for aneurysm thrombus or occlusion. Mild stenosis of the proximal left internal carotid artery measuring 44%. Patient received aspirin 325 mg no also was loaded with Plavix 300 mg. Patient admitted for stroke workup Suspected acute stroke out of the window as symptoms started since yesterday morning at 10. CT head however is negative. Received aspirin and Plavix. CTA negative for significant carotid stenosis. Will further evaluate with MRI brain and echocardiogram EKG with normal sinus rhythm continue to monitor on telemetry. Continue aspirin Plavix and add statin. Neurology has been consulted. Check lipid profile and A1c Hypertension allow permissive hypertension for now will need chronic hypertension control eventually Tobacco abuse will give nicotine patch counseling done Alcohol use counseling done Skin rash in lower extremities psoriasis versus eczema follow-up with Dermatology as outpatient basis DVT prophylaxis Lovenox Code status full code patient still complaints of numbness and tingling in his upper extremities, patient is seen by neurologist and suspect right hemispheric stroke with negative MRI could be involving the brainstem will need the repeat the study in the meantime medication can be continued as such and obtain the echocardiogram as well. upon arrival patient BP was elevated patient his not on any BP medication, will start amolodipine 5mg PO qd and monitor, will have PT/OT evaluate the patient, will benefit going to acute rehab. DS: Summary Hospital Course Hospital Course: patient still complaints of numbness and tingling in his upper extremities, patient was seen by neurologist and suspect right hemispheric stroke with negative MRI could be involving the brainstem will need the repeat the study in week and patient is given outpatient orders, in the meantime medication can be continued as such. the echocardiogram is normal with EF of 60-65% and grade I diastolic dysfunction. upon arrival patient BP was elevated patient was not on any BP medication, start amlodipine 5mg PO qd and his BP was still high, increased it to 10mg qd, and BP is trending down, patient participated in PT and requiring a walker and able to ambulate without any asistance, patient is clinically stable, will discharge home today. Time Spent with Patient Time attestation: Total time spent providing and/or coordinating discharge services: Exam Narrative: Patient is comfortable, NAD HEENT: eyes are clear and none icteric LUNGS:CTA HEART: RR S1S2 ABD: BS+, Soft and nontender Lower extremities: no edema SKIN: nonjaundiced Neuro: grossly intact. DS: Data Data Completed and Pending Labs on day of discharge: Labs from last 24 hours 06/25/25 06/25/25 05:41 05:37 WBC 9.7 RBC 5.62 Hgb 17.9 Hct 53.9 H MCV 95.9 MCH 31.9 MCHC 33.2 RDW 14.5 Plt Count 315 MPV 8.5 Sodium 134 L Potassium 3.5 Chloride 105 Carbon Dioxide 25 Anion Gap 4 BUN 12 Creatinine 0.79 Estim Creat Clear Calc 97 Estimated GFR > 60 Glucose 98 Calcium 8.6 Magnesium 2.0 Vitamin B12 294.0 Folate 11.2 Discharge Plan Discharge Attending physician on discharge: New Subramanian Consulting providers: Wilmer Leon Discharging Clinician: Neha Booker Patient Disposition: Home Activity: as tolerated Diet: heart healthy Discharge Instructions: neurologis has ordered MRI of cervical spine and brain stem as outpatient, patient need to recheck his blood pressure, patient is instructed to follow up with his primary care and neurologist as soon as possible, patient is instructed avoid alcohol and follow healthy diet. patient is instructed if any symptoms redevelop to go to nearest Patient Instructions: Antibiotic Form, Stroke (GEN) Patient Language: [place] Citizen Stand Alone Forms: General Discharge Information Follow-up/Referrals: Wilmer Leon MD [Physician, Neurology] PHYSICIAN,[facility] STORE MANAGER [Primary Care Provider, Internal Medicine] Discharge Medications: New nicotine [Nicoderm CQ] 21 mg/24 hr Patch 24 Hour 1 patch transdermal DAILY Qty: 28 0RF atorvastatin 40 mg Tablet 80 mg PO HS Qty: 30 0RF amlodipine 10 mg Tablet 10 mg PO DAILY Qty: 30 0RF aspirin 81 mg Tablet,Delayed Release (Dr/Ec) 81 mg PO QAM Qty: 30 0RF clopidogrel 75 mg Tablet 75 mg PO QAM Qty: 42 0RF vitamin B complex [Vitamins B Complex] Capsule 1 cap PO QAM Qty: 90 0RF No Action No Home Medications Other Ambulatory Orders: MR brain/brain stem wo/w con (Routine) Timeframe: 1 Week Location: Determined by Patient Ordered By: Wilmer Leon MR cervical spine wo/w con (Routine) Timeframe: 1 Week Location: Determined by Patient Ordered By: Wilmer Leon Date of admission: 06/23/25 15:01 Primary Care Provider: PHYSICIAN,[facility] STORE MANAGER Admitting Provider: New Subramanian Attending physician on admission: New Subramanian Condition: Stable
--- NOTE | 2025-06-25 17:43 | WPDNEURCNPN ---
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 I reviewed the films with the radiologist and he also agreed and addendum to the report. If the patient should be treated with the antiplatelets and statins. I shall be glad to follow him up in my office. Risk factor management such as stopping to smoke is also important. Furthermore he should be advised that if he has any further stroke-like symptoms should come to the emergency room right away. Echocardiogram was performed on 06/23/2025 which did not show any significant abnormality Consult date: 06/25/25 HPI: Mckinley Guerrero is a 55 year old male Who presented to the hospital with complaints of dizziness. Subsequently was found to have some weakness of the left face and left upper and lower limb. CT scan of the brain and CT angiogram of the head and neck were performed which did not show any significant abnormality. However narrowing of 44% was noted in the left internal carotid artery.MRI of the brain was initially reported to be normal however upon review it appears that there is a area of infarct in the pontine area on the right side. I discussed this with the radiologist. Patient is smoker. No history of prior history of stroke. patient denies any headache or diplopia or difficulty speech or swallowing. Review of Systems Review of Systems: All systems reviewed & are unremarkable except as noted in HPI and below PMFSH Past Medical History Medical History (Updated 06/25/25 @ 17:46 by Mario Goodman MD) Brainstem stroke Social History Social History Smoking packs per day: 1 Smoking cigarettes per day: 20.0 Years smoked: 40 Smoking pack-years: 40.00 Smoking status: Current every day smoker Tobacco type: cigarettes Alcohol intake: never Substance use: never Lack of Transportation: No Lack of Food: Never True Current Housing: I Do Not Have Housing Concerned About Future Housing: No Difficulty Paying Gas/Electric Bills: No Difficulty Paying for Meds: No Currently Unemployed: No Education: High School Diploma/GED Difficulty w/ Childcare or Family Care: No Spiritual care concerns: No Meds Home Medications and Allergies Home Medications ?Medication ?Instructions ?Recorded ?Confirmed ?Type amlodipine 10 mg tablet 10 mg PO DAILY #30 tabs 06/25/25 Rx aspirin 81 mg tablet,delayed 81 mg PO QAM #30 tabs 06/25/25 Rx release atorvastatin 40 mg tablet 80 mg (2 x 40 mg) PO HS #30 tabs 06/25/25 Rx clopidogrel 75 mg tablet 75 mg PO QAM #42 tabs 06/25/25 Rx nicotine 21 mg/24 hr daily 1 patch transdermal DAILY #28 ea 06/25/25 Rx transdermal patch (Nicoderm CQ) vitamin B complex (Vitamins B 1 cap PO QAM #90 caps 06/25/25 Rx Complex capsule) Allergies Allergy/AdvReac Type Severity Reaction Status Date / Time No Known Allergies Allergy Verified 06/23/25 14:12 Vital Signs Vital Signs - 24 hr 06/24/25 18:49 06/24/25 19:41 06/24/25 20:00 Temperature Pulse Rate Respiratory Rate Blood Pressure 192/83 H Pulse Oximetry 98 Oxygen Delivery Room Air Room Air 06/24/25 20:00 06/24/25 20:14 06/25/25 00:00 Temperature 97.8 F Pulse Rate 82 87 71 Respiratory Rate 16 Blood Pressure 180/95 H Pulse Oximetry 98 Oxygen Delivery 06/25/25 04:00 06/25/25 04:21 06/25/25 08:05 Temperature 97.9 F Pulse Rate 47 L 88 59 L Respiratory Rate 16 Blood Pressure 195/100 H Pulse Oximetry 98 Oxygen Delivery 06/25/25 08:34 06/25/25 08:51 06/25/25 12:06 Temperature Pulse Rate 75 Respiratory Rate Blood Pressure Pulse Oximetry Oxygen Delivery Room Air Room Air 06/25/25 14:00 06/25/25 16:05 Temperature 98.2 F Pulse Rate 84 75 Respiratory Rate 18 Blood Pressure 148/96 H Pulse Oximetry 96 Oxygen Delivery Exam Narrative: Fully conscious alert oriented to self time place and person. Cranial nerves show mild left supranuclear type weakness. Examination of lower and upper limb show mild weakness of the left upper and lower limb. Deep tendon reflexes also slightly brisk on the left than right side. Results Labs 06/25/25 05:41 06/25/25 05:41 Labs: Short CBC 06/25/25 Range/Units 05:41 WBC 9.7 (4.5-10.0) K/mm3 Hgb 17.9 (14.0-18.0) g/dL Hct 53.9 H (42.0-52.0) % Plt Count 315 (150-375) k/mm3 [facility] 06/25/25 05:41 Sodium 134 L Potassium 3.5 Chloride 105 Carbon Dioxide 25 BUN 12 Creatinine 0.79 Glucose 98 Calcium 8.6
== END 2025-06-25 16:55 | disposition home or self-care (01) ==
LOC: ANHED 15:55 → ANH3MED 06-24 03:59
PROVIDERS: Emergency Medicine; Admitting Provider Internal Medicine; Emergency Provider Student in an Organized Health Care Education/Training Program; Visit Provider Family Medicine
DX: I63.9 Cerebral infarction, unspecified (principal); R29.810 Facial weakness; R53.1 Weakness; I10 Essential (primary) hypertension; I65.22 Occlusion and stenosis of left carotid artery; F17.210 Nicotine dependence, cigarettes, uncomplicated
CPT/HCPCS: 36415; 70450; 70496; 70498; 70553; 71045; 80048; 80053; 80061; 82607; 82746; 82948; 83036; 83735; 84484; 85025; 85027; 85610; 85730; 92523; 93005; 93306; 96372; 96374; 96375; 97161; 99285; A9270; A9577; G0378; J1650; Q9967